=== PATIENT | female | born 2005 | race Caucasian/White ===

== ENCOUNTER 2025-06-24 12:37 | Inpatient (IN) | payer BC, OTHER, SELFPAY ==
[2025-06-24] VITALS (13 sets, daily range): BP systolic 113–173; BP diastolic 64–104; PULSE 107–144; RESP 14–22; TEMP 36.7–38.3; O2SAT 91–99; BMI 32.5; BMI 33.5
--- NOTE | 2025-06-24 12:49 | HMH.EDGENADL ---
Discharge Plan Referrals Follow up/Referrals: Provider,Referral, [Primary Care Provider, Medical] - See instructions Clinical Impressions Clinical Impression: Pyelonephritis, Sepsis Print Language Print Language: Singaporean Discharge ED Provider: Neto Richardson General Adult HPI General Chief complaint: Fever Stated complaint: fever, sever back pain, nausea, sor ethroat Time Seen by Provider: 06/24/25 12:41 History of Present Illness HPI narrative: Nelida Frederick is a 20-year-old female with a past medical history of depression who presents to the emergency department for complaints of 5 days of back pain and sudden onset fever, sore throat. Patient states in the last 5 days, she has pain on both sides of her back with some burning with urination. She states that she also felt like she was febrile today but did not take her temperature. She states that today she started to develop a sore throat but denies any hoarse voice, cough. She states that she feels very anxious and started hyperventilating. She states that she was get ready for telehealth call when her sore throat and fever started and that is when she began to have increased anxiety and hyperventilate. She denies any nausea, vomiting, abdominal pain or diarrhea. Related Data Allergies Allergy/AdvReac Type Severity Reaction Status Date / Time No Known Allergies Allergy Verified 06/24/25 12:55 [facility] Disclaimer: The information contained in this section may have been updated after the patient was seen, as this information can be updated by other users. Social History Smoking Status: Current every day smoker alcohol intake: never current occupational status: employed Travel in the last 8 weeks?: None ROS Obtained: Yes Systems reviewed as appropriate & no additional complaints except as documented Physical Exam General General appearance: alert, in no apparent distress and anxious Head Head exam: atraumatic Eye Eye exam: Present normal appearance ENT ENT exam: Present normal external ear exam Neck Neck exam: Present full ROM Chest Chest inspection: Present symmetric chest wall rise Respiratory Respiratory exam: Present normal lung sounds bilaterally; Absent respiratory distress, wheezes or stridor Cardiovascular Cardiovascular exam: Present normal rhythm and tachycardia Abdominal Exam Abdominal exam: Present soft; Absent distention, tenderness, guarding or rebound Extremities Exam Extremities exam: Present normal inspection Back Exam Back exam: Present normal inspection, CVA tenderness (R) and CVA tenderness (L) Neurological Exam Neurological exam: Present alert and oriented X3 Psychiatric Psychiatric exam: Present normal affect Skin Skin exam: Present warm and dry Medical Decision Making Medical Records Screening: Per USPSTF and CDC recommendations, given the prevalence of disease in our region, it is our hospital?s policy to screen for HIV and viral Hepatitis for all patients aged 18 and over and those with ongoing risk factors. Gabriel Inquiry Pt receiving controlled substance: No Vital Signs: 06/24/25 12:41 06/24/25 12:43 06/24/25 12:47 Temperature 100.9 F H Temperature Source Oral Pulse Rate 144 H 131 H Pulse Rate [Left Radial] 137 H Respiratory Rate 22 Blood Pressure 168/104 H 173/103 H Blood Pressure [Right Arm] 168/104 H Blood Pressure Mean [Right Arm] 125 02 Sat by Pulse Oximetry 98 98 98 Oxygen Delivery Method Room Air 06/24/25 13:00 06/24/25 13:02 06/24/25 13:31 Temperature Temperature Source Pulse Rate 130 H 127 H 122 H Pulse Rate [Left Radial] Respiratory Rate Blood Pressure 114/94 H 114/94 H 134/89 Blood Pressure [Right Arm] Blood Pressure Mean [Right Arm] 02 Sat by Pulse Oximetry 91 L 99 93 L Oxygen Delivery Method Room Air Room Air Room Air 06/24/25 14:30 06/24/25 14:47 Temperature 100.7 F H Temperature Source Oral Pulse Rate 119 H Pulse Rate [Left Radial] Respiratory Rate Blood Pressure 157/93 H Blood Pressure [Right Arm] Blood Pressure Mean [Right Arm] 02 Sat by Pulse Oximetry 98 Oxygen Delivery Method Room Air Lab Data Lab Results 06/24/25 12:57: Urine Color Yellow, Urine Appearance Clear, Urine pH 6.0, Ur Specific [place] 1.015, Urine Protein 1+ A, Urine Glucose (UA) Negative, Urine Ketones Negative, Urine Blood 1+ A, Urine Nitrate Positive A, Urine Bilirubin Negative, Urine Urobilinogen 0.2, Ur Leukocyte Esterase 2+ A, Urine RBC Occasional, Urine WBC Tntc, Ur Squamous Epith Cells Occasional, Urine Bacteria 2+, Urine HCG, Qual Negative, Group A Strep Rapid Negative 06/24/25 12:59: SARS-CoV-2 (PCR) Not detected, Influenza A Untype (PCR) Not detected, Influenza Type B (PCR) Not detected 06/24/25 14:00: WBC 12.9 H, RBC 4.51, Hgb 12.9, Hct 39.4, MCV 87.4, MCH 28.6, MCHC 32.7, RDW 13.5, Plt Count 261, MPV 11.9 H, Neut % (Auto) 82.9 H, Lymph % (Auto) 6.8 L, [place] % (Auto) 9.2, Eos % (Auto) 0.5, Baso % (Auto) 0.2, Neut # (Auto) 10.7 H, Lymph # (Auto) 0.9, [place] # (Auto) 1.2 H, Eos # (Auto) 0.1, Baso # (Auto) 0.0, Sodium 139, Potassium 4.3, Chloride 103, Carbon Dioxide 26, Anion Gap 14.3, BUN 9, Creatinine 0.80, Estimated Creat Clear 151, Estimated GFR 91, Est GFR ( Amer) 110, Glucose 108 H, Lactate 1.0, Calcium 8.9, Total Bilirubin 0.3, AST 26, ALT 16, Alkaline Phosphatase 74, Total Protein 7.3, Albumin 4.1, Globulin 3.2, Albumin/Globulin Ratio 1.3, Lipase 28 06/24/25 14:00 06/24/25 14:00 Orders (Tests/Meds): ED MEDICATIONS Discontinued Medications Generic Name Dose Route Start Last Admin Trade Name Krystina PRN Reason Stop Dose Admin Acetaminophen 1,000 mg 06/24/25 12:46 06/24/25 13:02 Acetaminophen 500mg Tab PO 06/24/25 12:47 1,000 mg ONCE ONE Administration Ceftriaxone Sodium 2 gm/ 100 mls @ 200 mls/hr 06/24/25 13:54 Sodium Chloride IV 06/24/25 14:23 ONCE ONE Lactated Ringer's 1,000 mls @ 999 mls/hr 06/24/25 13:53 06/24/25 14:16 Lactated Ringer's 1000 Ml Bag IV 06/24/25 14:53 999 mls/hr .Q1H1M ONE Administration Ketorolac Tromethamine 15 mg 06/24/25 13:53 06/24/25 14:15 Ketorolac 15mg/Ml Vial IV 06/24/25 13:54 15 mg ONCE ONE Administration ORDERS Category Date Time Status POCUS Point of Care (ER Only) Stat Exams 06/24/25 12:46 Completed CBC w/Auto Diff [Complete Blood Count Auto Diff] Stat Lab 06/24/25 14:00 Completed CMP [Comprehensive Metabolic Panel] Stat Lab 06/24/25 14:00 Completed Lactic Acid Stat Lab 06/24/25 14:00 Completed Lipase Stat Lab 06/24/25 14:00 Completed Rapid PCR Covid and Flu A/B Stat Lab 06/24/25 12:59 Completed Strep Scrn Group A (Rapid) Stat Lab 06/24/25 12:57 Completed UA [Urinalysis and Microscopic] Stat Lab 06/24/25 12:57 Completed Urine , HCG Qual. Stat Lab 06/24/25 12:57 Completed Blood Culture Stat Micro 06/24/25 14:11 Received Strep Screen Confirmation Stat Micro 06/24/25 12:57 Received Urine Culture Stat Micro 06/24/25 12:57 Received Medical Decision Narrative: Nelida Frederick is a 20-year-old female with a past medical history of depression who presents to the emergency department for complaints of 5 days of back pain and sudden onset fever, sore throat. Patient states in the last 5 days, she has pain on both sides of her back with some burning with urination. She states that she also felt like she was febrile today but did not take her temperature. She states that today she started to develop a sore throat but denies any hoarse voice, cough. She states that she feels very anxious and started hyperventilating. She states that she was get ready for telehealth call when her sore throat and fever started and that is when she began to have increased anxiety and hyperventilate. She denies any nausea, vomiting, abdominal pain or diarrhea. On arrival, patient is hypertensive but improved to 114/94 without intervention. Initially tachycardic at 137 but gradually improving without intervention. She is mildly febrile with temperature of 100.9 ?F. She is breathing comfortably on room air with oxygen saturation 98% SpO2. Physical exam, as stated above, revealed a very anxious appearing female in no respiratory distress. Cardiopulmonary exam reveals tachycardia but no murmurs or rubs. Abdomen is soft, nontender nondistended. She does have bilateral CVA tenderness, left worse than right. Oropharyngeal exam shows posterior oropharyngeal erythema but no tonsillar swelling or exudates. Uvula is midline. No muffling of the voice. No cervical lymphadenopathy. Differential diagnosis includes, but is not limited to: UTI/pyelonephritis, ureterolithiasis, viral respiratory illness, viral pharyngitis, strep pharyngitis. Low concern for DVT/PE as patient does not complain of any chest pain or significant shortness of breath. Initial workup in the emergency department included: Rapid COVID flu testing, strep swab, urinalysis, urine test, [id number] renal ultrasound.Will administer 1 g of oral Tylenol. Patient states that she took ibuprofen earlier this morning approximately 4 hours ago [id number] renal ultrasound was performed by me personally. I see no evidence of hydronephrosis or ureterolithiasis. I have low suspicion for renal stone at this time. See procedure note for details. Patient's COVID and flu testing is negative. Negative strep swab. Your studies are negative for , however she does have a significant urinary tract infection/pyelonephritis. She is nitrite positive, 2+ leukocyte esterase with too numerous to count white blood cells. 2+ bacteria. No blood. This is consistent with pyelonephritis. She continues to remain tachycardic and is chilling at this time and in a fair amount of pain. I discussed further workup with patient and will rule out sepsis with blood cultures, CBC, CMP, lactic acid and will administer 2 g of IV Rocephin, 15 mg IV Toradol (last had ibuprofen at 8:00 this morning), and give 1 L lactated ringer. Patient's workup shows leukocytosis with white blood cell count 12.9 with neutrophilia. No anemia. Platelets normal at 261. Electrolytes within normal limits. No AD. Liver enzymes and bilirubin within normal limits. Lipase normal at 28. Lactate normal. Patient meets sepsis criteria. Heart rate continues to be tachycardic here in the ER but she is not hypotensive. I do feel that she would benefit from admission for continued management of her sepsis/pyelonephritis. I spoke to the patient about admission and she is in agreement with the proceed with admission. I then spoke with hospitalist, Dr. Pugh for admission he is in agreement to proceed with admission at this time. Procedures Limited Ultrasound Indication:: Limited renal ultrasound Indication: A focused ultrasound of the kidneys was performed to evaluate for hydronephrosis and nephrolithiasis. The ultrasound was performed with the following indications, as noted in the H&P: Flank pain, fever Identified structures: - Both kidneys Findings: R/L/bilateral kidneys -Normal Impression: -Normal limited renal ultrasound, no evidence of hydronephrosis or calculi Images were saved to permanent archive The study was technically adequate CPT: 19624-88 This study was performed by me, and I personally interpreted all images/videos. Based on my clinical judgement, these images were adequate and did not necessitate further imaging. Critical Care Critical Care Time Critical Care Time: No
[2025-06-24] MEDS: ACETAMINOPHEN 500MG TAB 1000 MG PO (13:02)
[2025-06-24 13:04] LABS: Microscopic, Urine URINE MICROSCOPIC (MICROSCOPIC)
[2025-06-24 13:04] LABS: Coronavirus 19, PCR Not Detected (NotDetected); Influenza A, PCR Not Detected (NotDetected); Influenza B, PCR Not Detected (NotDetected)
[2025-06-24 13:05] LABS: Bilirubin,Urine Negative (Negative); Color,Urine YELLOW (Yellow); Glucose,Urine (UA) Negative (Negative); Ketones,Urine Negative (Negative); Leukocyte Esterase,Urine 2+ (Negative); PH,Urine 6.0 (5.0-8.5); Protein,Urine 1+ (Negative); Specific Gravity, Urine 1.015 (1.005-1.030); Urobilinogen,Urine 0.2 EU/dl (0.2)
[2025-06-24 13:06] LABS: Urine Pregnancy, HCG Qual. Negative (Negative)
[2025-06-24 13:13] LABS: Strep Scrn Group A (Rapid) Negative (Negative)
[2025-06-24 13:50] LABS: Bacteria,Urine 2+ /lpf; RBC,Urine Occasional #/hpf (0-3); Squamous Epithelial Cell,Urine Occasional #/hpf (0-5); WBC,Urine TNTC #/hpf (0-3)
[2025-06-24] MEDS: KETOROLAC 15MG/ML VIAL 15 MG IV (14:15)
[2025-06-24 14:16] LABS: Hematocrit 39.4 % (37.0-47.0); Hemoglobin 12.9 g/dL (12.2-16.2); Immature Granulocytes % 0.4 %; Mean Corpuscular HGB Conc 32.7 g/dL (31.8-35.4); Mean Corpuscular Hemoglobin 28.6 pg (27.0-31.2); Mean Corpuscular Volume 87.4 fl (81-99); Nucleated Red Blood Cells % 0 %; Platelet Count 261 K/mm3 (142-424); Red Blood Count 4.51 M/mm3 (4.20-5.40); Red Cell Distribution Width-SD 43.3 fL; White Blood Count 12.9 K/mm3 (4.8-10.8)
[2025-06-24] MEDS: LACTATED RINGERS 1000ML 1,000 ML 999 ML IV (14:16)
[2025-06-24 14:21] LABS: Albumin Level 4.1 g/dl (3.5-5.0); Chloride 103 mmol/L (98-107); Sodium 139 mmol/L (136-145)
[2025-06-24 14:22] LABS: Potassium 4.3 mmoL/L (3.5-5.1)
[2025-06-24 14:24] LABS: Alanine Aminotransferase 16 U/L (12-78); Albumin/Globulin Ratio 1.3 (1.1-1.8); Alkaline Phosphatase 74 U/L (38-126); Anion Gap 14.3 mEq/L (5-15); Aspartate Amino Transferase 26 U/L (14-36); Bilirubin,Total 0.3 mg/dl (0.2-1.3); Blood Urea Nitrogen 9 mg/dl (7-17); Carbon Dioxide 26 mmol/L (22.0-30.0); Creatinine Clearance Estimated 151 mL/min (50-200); Creatinine,Serum 0.80 mg/dl (0.52-1.04); Estimated Glomerular Filt Rate 91 ml/min (>60); GFR (African American) 110 ML/MIN (>60); Globulin 3.2 g/dL (1.3-3.2); Total Protein,Serum 7.3 g/dl (6.3-8.2)
[2025-06-24 14:25] LABS: Calcium 8.9 mg/dl (8.4-10.2); Glucose 108 mg/dl (74-100); Lipase 28 U/L (23-300)
--- NOTE | 2025-06-24 14:51 | PC.NURSE ---
reached out to the hospitalist about possible admission. Waiting to hear back.
--- NOTE | 2025-06-24 14:58 | PC.NURSE ---
The hospitalist accepted the pt. HS notified of the need for a bed to admit for pyelonephritis and sepsis.
--- NOTE | 2025-06-24 15:12 | PC.NURSE ---
report called to bev on second floor
--- NOTE | 2025-06-24 15:40 | PC.NURSE ---
arrived by w/c from ED
--- NOTE | 2025-06-24 15:44 | EXP.HP ---
History of Present Illness *Admission Date: 06/24/25 *Reason for visit:: Left flank pain *History of present illness: Kavita Jean Baptiste is a 20-year-old female with a medical history significant for UTIs presents with progressive left-sided flank pain, and 1 day onset of fevers and nausea. She states she started having back pain starting Friday, especially her left side. Initially she thought she pulled a muscle and used a massage chair which did not make it better. Left flank pain got progressively worse, and over the past day she started having fevers and nausea and left flank pain. Workup in the ED significant for WBC 12.9, fevers up to 100.9, with tachycardia, UA grossly abnormal. Patient was given 1 L LR, ceftriaxone, Tylenol, Toradol. Given these findings, ED provider discussed case with manage said to admit patient for acute left-sided pyelonephritis. [facility] Disclaimer: The information contained in this section may have been updated after the patient was seen, as this information can be updated by other users. Family History (Updated 06/24/25 @ 16:40 by Pam Ross RN) Other Family history of hypertension Family history of hyperthyroidism Social History (Updated 06/24/25 @ 15:02 by Neto Richardson MD) Smoking Status: Current every day smoker alcohol intake: never current occupational status: employed Travel in the last 8 weeks?: None Have you lived/traveled outside [place] in past 30 days?: No Contact w/someone who lives/traveled outside US past 30 days?: No Exposure to someone with infectious disease in past 14 days?: No Do you have a fever (greater than 100.4 F or 38 C)?: No Have you tested positive for COVID-19?: No Exposed to someone with COVID-19 in past 14 days?: No Do you have a sore throat?: No Do you have a cough?: No Do you have any weakness?: No Do you have any diarrhea?: No Are you experiencing any unusual bleeding?: No Do you have any muscle aches/pain?: No Do you have any abdominal pain?: No Are you experiencing loss of taste or smell?: No Meds Home Medications and Allergies Home Medications ?Medication ?Instructions ?Recorded ?Confirmed ?Type bupropion HCl 75 mg tablet 75 mg PO BID 06/24/25 06/24/25 History fluoxetine 40 mg capsule 40 mg PO DAILY 06/24/25 06/24/25 History New Prescriptions to Start Prescriptions: Allergies Allergy/AdvReac Type Severity Reaction Status Date / Time No Known Allergies Allergy Verified 06/24/25 12:55 Exam Data for Last 24 hours Vital signs and Labs for Last 24 Hours: Temp Pulse Resp BP Pulse Ox O2 Del Method 100.7 F H 119 H 22 158/92 H 97 Room Air 06/24/25 14:47 06/24/25 15:00 06/24/25 12:47 06/24/25 15:00 06/24/25 15:00 06/24/25 15:00 Laboratory Results - last 24 hr 06/24/25 12:57: Urine Color Yellow, Urine Appearance Clear, Urine pH 6.0, Ur Specific [place] 1.015, Urine Protein 1+ A, Urine Glucose (UA) Negative, Urine Ketones Negative, Urine Blood 1+ A, Urine Nitrate Positive A, Urine Bilirubin Negative, Urine Urobilinogen 0.2, Ur Leukocyte Esterase 2+ A, Urine RBC Occasional, Urine WBC Tntc, Ur Squamous Epith Cells Occasional, Urine Bacteria 2+, Urine HCG, Qual Negative, Group A Strep Rapid Negative 06/24/25 12:59: SARS-CoV-2 (PCR) Not detected, Influenza A Untype (PCR) Not detected, Influenza Type B (PCR) Not detected 06/24/25 14:00: WBC 12.9 H, RBC 4.51, Hgb 12.9, Hct 39.4, MCV 87.4, MCH 28.6, MCHC 32.7, RDW 13.5, Plt Count 261, MPV 11.9 H, Neut % (Auto) 82.9 H, Lymph % (Auto) 6.8 L, [place] % (Auto) 9.2, Eos % (Auto) 0.5, Baso % (Auto) 0.2, Neut # (Auto) 10.7 H, Lymph # (Auto) 0.9, [place] # (Auto) 1.2 H, Eos # (Auto) 0.1, Baso # (Auto) 0.0, Sodium 139, Potassium 4.3, Chloride 103, Carbon Dioxide 26, Anion Gap 14.3, BUN 9, Creatinine 0.80, Estimated Creat Clear 151, Estimated GFR 91, Est GFR ( Amer) 110, Glucose 108 H, Lactate 1.0, Calcium 8.9, Total Bilirubin 0.3, AST 26, ALT 16, Alkaline Phosphatase 74, Total Protein 7.3, Albumin 4.1, Globulin 3.2, Albumin/Globulin Ratio 1.3, Lipase 28 I & O for Last 24 hours: Intake & Output 06/21/25 06/22/25 06/23/25 06/24/25 23:59 23:59 23:59 23:59 Intake Total 1000 / 1000 Balance 1000 / 1000 Weight 86.183 kg Constitutional Constitutional: no acute distress *Routine HEENT Exam Head: Present normocephalic Eye: Present EOMI and PERRL ENT: Present mucous membranes moist *Routine Neck Exam Neck: Present supple; Absent lymphadenopathy *Routine Respiratory Exam Respiratory: Present CTA bilaterally *Routine Cardiovascular Exam Cardiovascular: Present RRR *Routine Abdominal Exam Abdominal: Present soft and normoactive bowel sounds; Absent tenderness *Routine Rectal Exam Rectal:: deferred *Routine Genitalia Exam Genitalia:: deferred *Routine Extremities Exam Extremities: Absent cyanosis, clubbing or edema Comments: Left CVA tenderness. *Routine Skin Exam Skin: Present warm; Absent rash *Routine Neurological Exam Neurological: Present alert and oriented X3 Assessment and Plan *Assessment and plan (1) Sepsis: Status: Acute Category: Medical Code(s): A41.9 - Sepsis, unspecified organism (2) Pyelonephritis: Status: Acute Category: Medical Code(s): N12 - Tubulo-interstitial nephritis, not specified as acute or chronic Plan Kavita Jean Baptiste is a 20-year-old female with a medical history significant for UTIs presents with progressive left-sided flank pain, and 1 day onset of fevers and nausea. She states she started having back pain starting Friday, especially her left side. Initially she thought she pulled a muscle and used a massage chair which did not make it better. Left flank pain got progressively worse, and over the past day she started having fevers and nausea and left flank pain. Workup in the ED significant for WBC 12.9, fevers up to 100.9, with tachycardia, UA grossly abnormal. Patient was given 1 L LR, ceftriaxone, Tylenol, Toradol. Given these findings, ED provider discussed case with manage said to admit patient for acute left-sided pyelonephritis. #Sepsis #Acute left-sided pyelonephritis ? Presented with progressive left-sided flank pain, fevers, nausea. UA grossly abnormal. ? Met sepsis criteria with tachycardia, fevers, leukocytosis. ? Continue IV ceftriaxone 1 g daily. ? Follow-up urine, blood cultures. ? Tylenol, Toradol, morphine for pain control since kidney function stable. #Anxiety/depression ? Continue home medications once reconciled. Full code DVT prophylaxis: Patient is ambulatory
[2025-06-24] MEDS: LACTATED RINGERS 1000ML 1,000 ML 100 ML IV (17:01)
[2025-06-24] MEDS: KETOROLAC 30MG/ML VIAL 30 MG IV (17:54)
[2025-06-24] MEDS: ACETAMINOPHEN 325MG TAB 650 MG PO (20:13)
[2025-06-24] MEDS: MORPHINE 4MG/ML SYRINGE 4 MG IV (20:56)
--- NOTE | 2025-06-24 21:50 | PC.NURSE ---
Pt vomited undigested foods. she woke from a sleep and vomited. Zofram was offered. Stated that she will wait a bit. PETROS HENDRICKSON
[2025-06-24] MEDS: ONDANSETRON 4MG/2ML VIAL 4 MG IV (23:12)
--- NOTE | 2025-06-24 23:16 | PC.NURSE ---
Pt was begining to dry heave. She requested Zofram. Gave her the med per the OCT. PETROS HENDRIKCSON RN
[2025-06-25] VITALS (7 sets, daily range): BP systolic 104–129; BP diastolic 45–87; PULSE 61–144; RESP 14–18; TEMP 36.8–38.9; O2SAT 93–97; BMI 33.5
[2025-06-25] MEDS: IBUPROFEN 400 MG TABLET PO (00:16)
[2025-06-25] MEDS: LACTATED RINGERS 1000ML 1,000 ML 100 ML IV ×3 (02:49→22:34)
--- NOTE | 2025-06-25 03:49 | PC.NURSE ---
Pt is on RA, Alert and oriented X4, Patients Boyfriend is at the beside. Pt has vomited tonight most of what she ate yesterday. Pt has spiked a temp on and off all night last temp was 101.2 spoke with Tran [employer]is [employer] OPERATOR he placed orders of phenergan and mortin 400 mg. Pt is independent can walk to the Bathroom to void. call light is with in reach the bed is in the lowest position. PETROS HENDRICKSON RN
[2025-06-25 08:10] LABS: Hematocrit 40.4 % (37.0-47.0); Hemoglobin 12.7 g/dL (12.2-16.2); Immature Granulocytes % 1.2 %; Mean Corpuscular HGB Conc 31.4 g/dL (31.8-35.4); Mean Corpuscular Hemoglobin 28.1 pg (27.0-31.2); Mean Corpuscular Volume 89.4 fl (81-99); Nucleated Red Blood Cells % 0 %; Platelet Count 209 K/mm3 (142-424); Red Blood Count 4.52 M/mm3 (4.20-5.40); Red Cell Distribution Width-SD 45.1 fL; White Blood Count 24.1 K/mm3 (4.8-10.8)
[2025-06-25] MEDS: ONDANSETRON 4MG/2ML VIAL 4 MG IV (08:28)
[2025-06-25] MEDS: KETOROLAC 30MG/ML VIAL 30 MG IV (08:29)
--- NOTE | 2025-06-25 08:47 | HMH.PHAAMS2 ---
- Antimicrobial Stewardship Review culture & sensitivity review Stewardship interventions: culture & sensitivity review Comments: BLOOD CX PENDING, URINE CX GRAM NEGATIVE RODS WITH FINAL ID/SENSITIVITY PENDING. PATIENT ON EMPIRIC THERAPY FOR PYELONEPHRITIS/UTI (ROCEPHIN).
[2025-06-25 08:52] LABS: Alanine Aminotransferase 39 U/L (12-78); Albumin Level 4.2 g/dl (3.5-5.0); Albumin/Globulin Ratio 1.4 (1.1-1.8); Alkaline Phosphatase 111 U/L (38-126); Anion Gap 14.9 mEq/L (5-15); Aspartate Amino Transferase 72 U/L (14-36); Bilirubin,Total 0.8 mg/dl (0.2-1.3); Blood Urea Nitrogen 6 mg/dl (7-17); Calcium 8.7 mg/dl (8.4-10.2); Carbon Dioxide 21 mmol/L (22.0-30.0); Chloride 102 mmol/L (98-107); Creatinine Clearance Estimated 179 mL/min (50-200); Creatinine,Serum 0.70 mg/dl (0.52-1.04); Estimated Glomerular Filt Rate 106 ml/min (>60); GFR (African American) 128 ML/MIN (>60); Globulin 3.0 g/dL (1.3-3.2); Glucose 114 mg/dl (74-100); Potassium 3.9 mmoL/L (3.5-5.1); Sodium 134 mmol/L (136-145); Total Protein,Serum 7.2 g/dl (6.3-8.2)
[2025-06-25] MEDS: MORPHINE 4MG/ML SYRINGE 4 MG IV ×2 (09:14→20:51)
[2025-06-25] MEDS: SODIUM CHLORIDE 0.9% 25ML BAG 25 ML IV (09:17)
[2025-06-25] MEDS: PROMETHAZINE HCL 25MG/ML 1ML VIAL 12.5 MG IV (09:18)
--- NOTE | 2025-06-25 09:20 | HMH.PHAINT1 ---
Pharmacy Intervention Comments: MEDICATION RECONCILIATION COMPLETE USING EXTERNAL PHARMACY FILL HISTORY.
[2025-06-25 09:31] LABS: RBC Morphology Normal; Total Cells Counted 100
--- NOTE | 2025-06-25 10:08 | CT_ITS ---
PROCEDURE INFORMATION: Exam: CT Abdomen And Pelvis With Contrast Exam date and time: 06/25/2025 10:53 AM Age: 20 years old Clinical indication: Other: Suspect pyelonephritis, worsening fevers TECHNIQUE: Imaging protocol: Computed tomography of the abdomen and pelvis with contrast. Radiation optimization: All CT scans at this facility use at least one of these dose optimization techniques: automated exposure control; mA and/or kV adjustment per patient size (includes targeted exams where dose is matched to clinical indication); or iterative reconstruction. Contrast material: ISOVUE; Contrast volume: 75 ml; Contrast route: IV; COMPARISON: No relevant prior studies available. FINDINGS: Liver: Normal. No mass. Gallbladder and biliary ducts: Normal. No calcified stones. No ductal dilation. Pancreas: Normal. No ductal dilation. Spleen: Normal. No splenomegaly. Adrenal glands: Normal. No mass. Kidneys and ureters: Mild left perinephric stranding. Heterogeneous enhancement within the left superior and mid poles. Mild wall enhancement of the proximal left ureter. Compatible with pyelonephritis/ureteritis. Normal enhancement of the right kidney. Stomach and bowel: Unremarkable. No obstruction. No mucosal thickening. Appendix: No evidence of appendicitis. Intraperitoneal space: Unremarkable. No free air. No significant fluid collection. Vasculature: Unremarkable. No abdominal aortic aneurysm. Lymph nodes: Unremarkable. No enlarged lymph nodes. Urinary bladder: Unremarkable as visualized. Reproductive: IUD in the uterus. Bones/joints: Unremarkable. No acute fracture. Soft tissues: Unremarkable. IMPRESSION: Mild left perinephric stranding. Heterogeneous enhancement within the left superior and mid poles. Mild wall enhancement of the proximal left ureter. Compatible with pyelonephritis/ureteritis.
[2025-06-25] MEDS: IOPAMIDOL-370 (76%);100ML BOTTLE 75 ML IV (10:59)
[2025-06-25] MEDS: SODIUM CHLORIDE 0.9% 10ML SYR (RAD ONLY) 10 ML IV (10:59)
[2025-06-25] MEDS: CEFEPIME HCL 2 GM in 0.9 % SODIUM CHLORIDE 100 ML IV ×2 (11:42→17:50)
--- NOTE | 2025-06-25 11:51 | EXP.PN ---
Subjective *Date: 06/25/25 *Time: 11:51 Interval history: Patient continues to feel unwell, febrile, tachycardic. Follow-up GC/trichomonas workup. Switch antibiotics to IV cefepime, follow-up urine cultures. Exam Data for Last 24 hours Vital signs and Labs for Last 24 Hours: Temp Pulse Resp BP Pulse Ox O2 Del Method 99.0 F 144 H 18 120/87 96 Room Air 06/25/25 08:00 06/25/25 08:00 06/25/25 08:00 06/25/25 08:00 06/25/25 08:00 06/25/25 09:00 Laboratory Results - last 24 hr 06/24/25 12:57: Urine Color Yellow, Urine Appearance Clear, Urine pH 6.0, Ur Specific [place] 1.015, Urine Protein 1+ A, Urine Glucose (UA) Negative, Urine Ketones Negative, Urine Blood 1+ A, Urine Nitrate Positive A, Urine Bilirubin Negative, Urine Urobilinogen 0.2, Ur Leukocyte Esterase 2+ A, Urine RBC Occasional, Urine WBC Tntc, Ur Squamous Epith Cells Occasional, Urine Bacteria 2+, Urine HCG, Qual Negative, Group A Strep Rapid Negative 06/24/25 12:59: SARS-CoV-2 (PCR) Not detected, Influenza A Untype (PCR) Not detected, Influenza Type B (PCR) Not detected 06/24/25 14:00: WBC 12.9 H, RBC 4.51, Hgb 12.9, Hct 39.4, MCV 87.4, MCH 28.6, MCHC 32.7, RDW 13.5, Plt Count 261, MPV 11.9 H, Neut % (Auto) 82.9 H, Lymph % (Auto) 6.8 L, [place] % (Auto) 9.2, Eos % (Auto) 0.5, Baso % (Auto) 0.2, Neut # (Auto) 10.7 H, Lymph # (Auto) 0.9, [place] # (Auto) 1.2 H, Eos # (Auto) 0.1, Baso # (Auto) 0.0, Sodium 139, Potassium 4.3, Chloride 103, Carbon Dioxide 26, Anion Gap 14.3, BUN 9, Creatinine 0.80, Estimated Creat Clear 151, Estimated GFR 91, Est GFR ( Amer) 110, Glucose 108 H, Lactate 1.0, Calcium 8.9, Total Bilirubin 0.3, AST 26, ALT 16, Alkaline Phosphatase 74, Total Protein 7.3, Albumin 4.1, Globulin 3.2, Albumin/Globulin Ratio 1.3, Lipase 28 06/25/25 08:00: WBC 24.1 H* D, RBC 4.52, Hgb 12.7, Hct 40.4, MCV 89.4, MCH 28.1, MCHC 31.4 L, RDW 13.7, Plt Count 209, MPV 12.0 H, Neut % (Auto) 86.8 H, Lymph % (Auto) 4.3 L, [place] % (Auto) 7.3, Eos % (Auto) 0.2, Baso % (Auto) 0.2, Neut # (Auto) 20.9 H, Lymph # (Auto) 1.0, [place] # (Auto) 1.8 H, Eos # (Auto) 0.1, Baso # (Auto) 0.0, Total Counted 100, Neutrophils % (Manual) 83 H, Lymphocytes % (Manual) 9 L, Monocytes % (Manual) 8, Platelet Estimate Normal, RBC Morphology Normal, Sodium 134 L, Potassium 3.9, Chloride 102, Carbon Dioxide 21 L, Anion Gap 14.9, BUN 6 L D, Creatinine 0.70, Estimated Creat Clear 179, Estimated GFR 106, Est GFR ( Amer) 128, Glucose 114 H, Calcium 8.7, Total Bilirubin 0.8, AST 72 H D, ALT 39 D, Alkaline Phosphatase 111, Total Protein 7.2, Albumin 4.2, Globulin 3.0, Albumin/Globulin Ratio 1.4 I & O for Last 24 hours: Intake & Output 06/22/25 06/23/25 06/24/25 06/25/25 23:59 23:59 23:59 23:59 Intake Total 1460 / 1700 2110 / 2110 Output Total 0 / 0 1150 / 1150 Balance 1460 / 1700 960 / 960 Weight 89.2 kg 89.103 kg Microbiology Reports for the Last 24 Hours: Microbiology 06/24/25 12:57 Urine,Clean Catch Urine Culture - Preliminary Gram Negative Rods Constitutional Constitutional: mild distress *Routine HEENT Exam Head: Present normocephalic Eye: Present EOMI and PERRL ENT: Present mucous membranes moist *Routine Neck Exam Neck: Present supple; Absent lymphadenopathy *Routine Respiratory Exam Respiratory: Present CTA bilaterally *Routine Cardiovascular Exam Cardiovascular: Present RRR *Routine Abdominal Exam Abdominal: Present soft, normoactive bowel sounds and tenderness Comments: Left CVA tenderness. *Routine Extremities Exam Extremities: Absent cyanosis, clubbing or edema *Routine Skin Exam Skin: Present warm; Absent rash *Routine Neurological Exam Neurological: Present alert and oriented X3 Assessment and Plan *Assessment and plan (1) Sepsis: Status: Acute Category: Medical Code(s): A41.9 - Sepsis, unspecified organism (2) Pyelonephritis: Status: Acute Category: Medical Code(s): N12 - Tubulo-interstitial nephritis, not specified as acute or chronic Plan Kavita Jean Baptiste is a 20-year-old female with a medical history significant for UTIs presents with progressive left-sided flank pain, and 1 day onset of fevers and nausea. She states she started having back pain starting Friday, especially her left side. Initially she thought she pulled a muscle and used a massage chair which did not make it better. Left flank pain got progressively worse, and over the past day she started having fevers and nausea and left flank pain. Workup in the ED significant for WBC 12.9, fevers up to 100.9, with tachycardia, UA grossly abnormal. Patient was given 1 L LR, ceftriaxone, Tylenol, Toradol. Given these findings, ED provider discussed case with manage said to admit patient for acute left-sided pyelonephritis. #Sepsis #Acute left-sided pyelonephritis ? Presented with progressive left-sided flank pain, fevers, nausea. UA grossly abnormal. ? Met sepsis criteria with tachycardia, fevers, leukocytosis. ? Today, patient states she continues to feel unwell, weak, left flank pain that is slightly worse today. Fevers up to 101.2 overnight, WBC bumped to 24.1. Still tachycardic. ? CT abdomen/pelvis on 06/25/2025 consistent with left-sided pyelonephritis and ureteritis without abscess. ? Switched to IV cefepime 2 g every 8 hours, discontinued ceftriaxone. ? Continue LR at 100 mg/h. ? Ordered G/C/trichomonas studies. ? Follow-up urine, blood cultures. Urine culture growing gram-negative rods. ? Tylenol, Toradol, morphine for pain control since kidney function stable. Creatinine 0.70, GFR 106. Stable. ? Follow-up morning CBC, CMP, CRP, procalcitonin. #Anxiety/depression ?Continue home bupropion 75 mg twice daily, fluoxetine 40 mg daily. Full code DVT prophylaxis: Patient is ambulatory
[2025-06-25] MEDS: FLUOXETINE 20MG CAPSULE 40 MG PO (12:18)
[2025-06-25] MEDS: ACETAMINOPHEN 325MG TAB 650 MG PO ×2 (12:48→20:47)
[2025-06-25 13:03] LABS: Adenovirus,PCR Not Detected (NotDetected); Chlamydophila Pneumoniae, PCR Not Detected (NotDetected); Coronavirus 19, PCR Not Detected (NotDetected); Coronovirus HKU1,PCR Not Detected (NotDetected); Influenza A, PCR Not Detected (NotDetected); Influenza AH1, 2009 Not Detected (NotDetected); Influenza AH1, PCR Not Detected (NotDetected); Influenza AH3,PCR Not Detected (NotDetected); Influenza B, PCR Not Detected (NotDetected); Mycoplasma Pneumoniae, PCR Not Detected (NotDetected); Parainfluenza 1, PCR Not Detected (NotDetected); Parainfluenza 2, PCR Not Detected (NotDetected); Parainfluenza 3, PCR Not Detected (NotDetected); Parainfluenza 4, PCR Not Detected (NotDetected)
--- OUTSIDE RECORDS SUMMARY | 2025-06-25 13:16 | XMS_ITS | Clinical Summary ---
[facility] Organization [facility] Address [address] [place] [address] Care Team Providers Care Community Health Program Representative Name Role Phone Percy Mendez DO Primary Care Provider [phone] Allergies No known active allergies Medications levonorgestrel (Kyleena) 19.5 MG intrauterine device IUD To be inserted one time by prescriber. Route intrauterine. Active phenazopyridine (PYRIDIUM) 200 MG tablet Take 1 tablet by mouth 3 (Three) Times a Day As Needed for Bladder Spasms. Active azithromycin (ZITHROMAX) 250 MG tabletIndication s:Chronic vaginitis Take 2 tablets the first day, then 1 tablet daily for 4 days. Start when finished with Moxifloxacin 6 tablet 5 Active Active Problems Problem Noted Date Diagnosed Date Urine frequency 05/03/2024 Sore throat 04/06/2024 IUD (intrauterine device) in place- Kyleena (8/ 023) 03/05/2024 Current every day vaping 03/05/2024 Immunizations Immunization Administration Dates Next Due DTaP 10/21/2005, 5,2004,05/11/20 04 DTaP / IPV 03/27/2009 DTaP, Unspecified 03/27/2009 Hep A, 2 Dose 04/15/2018,10/07/2017 Hep B, Adolescent or Pediatric 2004,2003,2004 Hib (PRP-OMP) 03/11/2005 Hpv9 04/02/2019,05/16/2015 MMR 03/27/2009,03/23/2006 Meningococcal MCV4P (Menactra) 05/15/2021,2014 PEDS-Pneumococcal Conjugate (PCV7) 03/11/2005 Polio, Unspecified 03/27/2009 Rotavirus, Unspecified 04/02/2019,05/16/2015 Tdap 05/16/2015 Varicella 05/16/2015,03/27/2009,03/11/2005 Family History Medical History Relation Name Comments Breast cancer Maternal Aunt Diabetes Maternal Grandmother type 1 Hypothyroidism Maternal Grandmother Hypothyroidism Mother Ovarian cysts Mother Colon cancer Neg Hx Ovarian cancer Neg Hx Uterine cancer Neg Hx Relation Name Status Comments Maternal Aunt great- aunt Maternal Grandmother Mother Social History Tobacco Use Types Packs/Day Years Used Date Smoking Tobacco: Never Passive Smoke Exposure: Never Smokeless Tobacco: Never Tobacco Cessation:Counseling Given: Not Answered Alcohol Use Standard Drinks/Week Comments Not Currently 0 (1 standard drink = 0.6 oz pur e alcohol) Abuse Screen Answer Date Recorded Feels Unsafe at Home or Work/School no 07/26/2024 Feels Threatened by Someone no 07/05 Does Anyone Try to Keep You From Having Contact with Others or Doing Things Outside Your Home? no 07/26/2024 Physical Signs of Abuse Present no 07/26/2024 PHQ-2 Answer Date Recorded Patient Health Questionnaire-2 Score 1 09/24/2024 Comments No Sex and Gender Information Value Date Recorded Sex Assigned at Female 08/24/2024 9:07 AM EST Legal Sex Female 12:56 PM EDT Gender Identity Not on file Sexual Orientation Not on file Last Filed Vital Signs Vital Sign Reading Time Taken Comments Blood Pressure 92/76 09/24/2024 1:24 PM EST Pulse 85 09/24/2024 1:24 PM EST Temperature 36.9 C (98.4 F) 07/26/2024 12:41 AM EST Respiratory Rate 18 09/24/2024 1:24 PM EST Oxygen Saturation 99% 09/24/2024 1:24 PM EST Inhaled Oxygen Concentration - - Weight 88 kg (194 lb) 09/24/2024 1:24 PM EST Height 162.6 cm (5' 4.02 ) 09/24/2024 1:24 PM ES T Body Mass Index 33.28 09/24/2024 1:24 PM EST Plan of Treatment Health Maintenance Due Date Last Done Comments Annual Gynecologic Pelvic an d Breast Exam 2004 MENINGOCOCCAL B VACCINE (1 o f 2 - Standard) 2020 ANNUAL PHYSICAL 03/05/2024 HEPATITIS C SCREENING 03/05/2024 INFLUENZA VACCINE 03/04/2025 PAP SMEAR 2025 TDAP/TD VACCINES (2 - Td or Tdap) 05/16/2025 05/16/2015 CHLAMYDIA SCREENING 08/11/2025 08/11/2024, 06/25/2024, 03/05/2024 Pneumococcal Vaccine 0-49 Aged Out 03/11/2005 No longer eligible based on patient's age to complete this topic HPV VACCINES Completed 04/02/2019, 05/16/2015 MENINGOCOCCAL VACCINE Completed 05/15/2021 , 05/16/2015 Procedures Procedure Name Priority Date/Time Associated Diagnosis Comments NUSWAB VG+ Routine 08/11/2024 3:00 PM EST Chronic vaginitis from Last 3 Months or Most Recently Relevant to Health Maintenance Results * (ABNORMAL) NuSwab VG+ - Swab, Vagina (08/11/2024 3:00 PM EST) Atopobium Vaginae High - 2(A) Score [facility] B BVAB 2 Low - 0 Score [facility] Megasphaera 1 Low - 0 Score [facility] Comment: Calculate total score by adding the 3 individual bacterial vaginosis (BV) marker scores together. Total score is interpreted as follows: Total score 0-1: Indicates the absence of BV. Total score 2: Indeterminate for BV. Additional clinical data should be evaluated to establish a diagnosis. Total score 3-6: Indicates the presence of BV. Estrella Albicans, DEANDRA Negative Negative [facility] Estrella Glabrata, DEANDRA Negative Negative [facility] Trichomonas vaginosis Negative Negative [facility] Chlamydia trachomatis, DEANDRA Negative Negative [facility] Neisseria gonorrhoeae, DEANDRA Negative Negative [facility] Swab Vaginal structure / Unknown 08/11/2024 3:00 PM EST 08/11/2024 Comment:[facility]- [id number] Narrative [facility] ([facility]) - 08/14/2024 2:08 PM EST Test(s) 302554- Atopobium vaginae; 569730- BVAB 2; 590418- Megasphaera 1 was developed and its performance characteristics determined by [facility]. It has not been cleared or approved by the Food and Drug Administration. Test(s) 923421-Nsssgrs albicans, DEANDRA; 877721-Hafqqjj glabrata, DEANDRA was developed and its performance characteristics determined by [facility]. It has not been cleared or approved by the Food and Drug Administration. Performed at: 01 - [facility] [id number] Hr Recruiter: Pratik Khalil MD, Phone: [phone] Faiza Murphy APRN MICROBIOLOGY - GENERAL ORD ERABLES Final Result [facility] (AMBULATORY) [address] [place] [address], [facility] [address] [place] [address], from Last 3 Months or Most Recently Relevant to Health Maintenance Insurance [facility] Care Teams Community Health Program Representative Relationship Specialty Start Date End Date ePrcy Mendez DO [address] [place] [id number] PCP - General Family Medicine 09/24/24
--- OUTSIDE RECORDS SUMMARY | 2025-06-25 13:16 | XMS_ITS | Clinical Summary ---
Author Organization Healthcare Address [address] [place] [address] Care Team Providers Care Ink Maker Name Role Phone Pcp, No Primary Care Provider Unavailabl e Social History Tobacco Use Types Packs/Day Years Used Date Smoking Tobacco: Never Assessed Comments Unknown Sex and Gender Information Value Date Recorded Sex Assigned at Not on file Legal Sex Female 7:50 PM EDT Gender Identity Not on file Sexual Orientation Not on file Plan of Treatment Upcoming Encounters Date Type Department Care Team (Late st Contact Info) Description 07/13/2025 1:20 PM EST Office Visit Obstetrics & Gynecology [address] [place] [address] Mare Wolf, WEAPONS SPECIALIST, CNM [address] [facility] [address] [place] [address] Health Maintenance Due Date Last Done Comments Dental Oral Exam 2004 Dental Prophylaxis 2004 Dental X-Ray: Bitewings 2004 Dental X-Ray: Full Mouth 2004 [facility]-Depression Screening 2004 [facility]-HIV Screening 2004 [facility]-Hepatitis C Screening 2004 [facility]-Infant/Child/Adol SDOH Screenings 2004 [facility]-Hepatitis B Vaccines (2 of 3 - 3-dose series) 2004 2004 [facility]-IPV Vaccines (2 of 3 - 4 -dose series) 2004 2004 [facility]-Varicella Vaccines (1 of 2 - 13+ 2-dose series) 2017 HPV Vaccines (1 - 3-dose series) 2019 [facility]- SDOH Screenings 2022 [facility]-Adult SDOH Screenings 2022 [facility]-DTaP,Tdap,and Td Vaccine s (2 - Tdap) 2023 2004 [facility]-Pap Smear 2025 [facility]-RDCIP-30 Vaccine (1 - 20 25-26 season) 2025 [facility]-Influenza Vaccine (#1) 2025 [facility]-Zoster Vaccines (1 of 2) 2054 [facility]-Pneumococcal Vaccine: Pediatrics (0 to 5 Years) and At-Risk Patients (6 to 49 Years) Aged Out 2004 No long er eligible based on patient's age to complete this topic [facility]-HIB Vaccines Aged Out No longer e ligible based on patient's age to complete this topic [facility]-Hepatitis A Vaccines Aged Out No longer eligible based on patient's age to complete this topic [facility]-Rotavirus Vaccines Aged Out No lo nger eligible based on patient's age to complete this topic Insurance [facility] MEDICAID [facility] Medicaid Dental Care Teams Ink Maker Relationship Specialty Start Date [place] [address] PCP - General Family Medicine 06/15/25
[2025-06-25] MEDS: KETOROLAC 15MG/ML VIAL 15 MG IV ×2 (13:42→22:52)
[2025-06-25 14:05] LABS: C-Reactive Protein 232.5 mg/L (0-4)
[2025-06-25 14:17] LABS: Procalcitonin 1.05 ng/mL (0.0-2.0)
--- NOTE | 2025-06-25 17:16 | PC.NURSE ---
pt resting supine in bed at this time. treated for pain and nausea multiple times this shift. pt spiked fever of 103.2 during 1200 vitals. tech notified this rn and tylenol given per oct. fever reduced to 99.4 at 1422. pt had one episode of vomiting this shift. urine and full resp sent to lab. no needs at this time. call light within reach.
[2025-06-26] VITALS: BP 99/53; PULSE 93; RESP 16; TEMP 37.2; O2SAT 94
[2025-06-26] MEDS: CEFEPIME HCL 2 GM in 0.9 % SODIUM CHLORIDE 100 ML IV ×2 (01:43→08:51)
[2025-06-26 04:00] VITALS: BP 99/59; PULSE 86; RESP 16; TEMP 36.8; O2SAT 93; BMI 36.6
[2025-06-26] MEDS: KETOROLAC 15MG/ML VIAL 15 MG IV ×3 (05:45→18:26)
[2025-06-26] MEDS: LACTATED RINGERS 1000ML 1,000 ML 100 ML IV ×3 (05:45→18:27)
[2025-06-26] MEDS: MORPHINE 4MG/ML SYRINGE 4 MG IV ×2 (05:56→20:08)
[2025-06-26 06:57] LABS: Hematocrit 33.1 % (37.0-47.0); Immature Granulocytes % 0.7 %; Mean Corpuscular HGB Conc 31.1 g/dL (31.8-35.4); Mean Corpuscular Hemoglobin 27.6 pg (27.0-31.2); Mean Corpuscular Volume 88.7 fl (81-99); Nucleated Red Blood Cells % 0 %; Platelet Count 183 K/mm3 (142-424); Red Blood Count 3.73 M/mm3 (4.20-5.40); Red Cell Distribution Width-SD 45.4 fL; White Blood Count 22.0 K/mm3 (4.8-10.8)
[2025-06-26 07:12] LABS: Alanine Aminotransferase 37 U/L (12-78); Albumin Level 3.1 g/dl (3.5-5.0); Albumin/Globulin Ratio 1.2 (1.1-1.8); Alkaline Phosphatase 102 U/L (38-126); Anion Gap 8.6 mEq/L (5-15); Aspartate Amino Transferase 52 U/L (14-36); Bilirubin,Total 0.6 mg/dl (0.2-1.3); Blood Urea Nitrogen 7 mg/dl (7-17); Calcium 8.1 mg/dl (8.4-10.2); Carbon Dioxide 24 mmol/L (22.0-30.0); Chloride 104 mmol/L (98-107); Creatinine Clearance Estimated 195 mL/min (50-200); Creatinine,Serum 0.70 mg/dl (0.52-1.04); Estimated Glomerular Filt Rate 106 ml/min (>60); GFR (African American) 128 ML/MIN (>60); Globulin 2.6 g/dL (1.3-3.2); Glucose 95 mg/dl (74-100); Potassium 3.6 mmoL/L (3.5-5.1); Sodium 133 mmol/L (136-145); Total Protein,Serum 5.7 g/dl (6.3-8.2)
--- NOTE | 2025-06-26 07:26 | PC.NURSE ---
at 2248 06/25/2025 Pt spiked a temp of 102.1 Auxiliary. She has rested on and off thru the night. When spike the fever and chilling she has back pain in the Left flank area. described the pain as a 9 or a 10 and she is was crying in pain. Pt is on Room air. walked to the bathroom to void. LR Going at 150 ml. PT did not have any vomiting overnight. call light is within reach and the beds wheels are lock for Pt safety. PETROS HENDRICKSON RN
[2025-06-26 08:00] VITALS: BP 116/55; PULSE 102; RESP 14; TEMP 37.2; O2SAT 98
[2025-06-26] MEDS: FLUOXETINE 20MG CAPSULE 40 MG PO (08:51)
--- NOTE | 2025-06-26 10:57 | HMH.PHAAMS2 ---
- Antimicrobial Stewardship Review culture & sensitivity review Stewardship interventions: culture & sensitivity review Comments: URINE CX GROWING GRAM NEGATIVE RODS, ID/SENSITIVITY PENDING. BLOOD CX NO GROWTH AT 24 HRS. TREATING COMPLICATED UTI (PYELONEPHRITIS) EMPIRICALLY WITH CEFEPIME.
[2025-06-26 11:09] LABS: RBC Morphology Normal; Total Cells Counted 100
[2025-06-26 11:12] LABS: Hemoglobin 10.6 g/dL (12.2-16.2)
[2025-06-26] MEDS: ACETAMINOPHEN 325MG TAB 650 MG PO ×2 (11:53→20:08)
[2025-06-26 12:00] VITALS: BP 121/65; PULSE 111; RESP 16; TEMP 37.3; O2SAT 97
--- NOTE | 2025-06-26 14:01 | P.PN_ITS ---
Subjective *Date: 06/26/25 *Time: 14:01 Interval history: Today, patient states she feels slightly better. Continues to have weakness, left flank pain. Fevers improving, afebrile overnight. WBC improved from 24- 22. Continue cefepime pending urine culture speciation and sensitivities. Exam Data for Last 24 hours Vital signs and Labs for Last 24 Hours: Temp Pulse Resp BP Pulse Ox O2 Del Method 98.3 F 86 16 99/59 L 93 L Room Air 06/26/25 04:00 06/26/25 04:00 06/26/25 04:00 06/26/25 04:00 06/26/25 04:00 06/26/25 12:53 Laboratory Results - last 24 hr 06/25/25 08:00: C-Reactive Protein 232.5 H, Procalcitonin 1.05 06/25/25 10:46: Ur C. trach DNA (PCR) Negative, U N.gonorrhoeae DNA PCR Negative, T. vaginalis (PCR) Negative 06/25/25 12:50: Chlamy pneumoniae PCR Not detected, Adenovirus (PCR) Not detected, B. pertussis DNA (PCR) Not detected, Coronavirus OC43 (PCR) Not detected, Coronavirus HKU1 (PCR) Not detected, Coronavirus 229E (PCR) Not detected, SARS-CoV-2 (PCR) Not detected, Coronavirus NL63 (PCR) Not detected, Human Metapneumovir PCR Not detected, Influenza A (H1) PCR Not detected, Influ A (H1N1/09) PCR Not detected, Influenza A (H3) PCR Not detected, Influenza Type A (PCR) Not detected, Influenza Type B (PCR) Not detected, M. pneumoniae (PCR) Not detected, Parainfluenza 1 (PCR) Not detected, Parainfluenza 2 (PCR) Not detected, Parainfluenza 3 (PCR) Not detected, Parainfluenza 4 (PCR) Not detected, RSV (PCR) Not detected, Entero/Rhino (PCR) Not detected 06/26/25 06:15: WBC 22.0 H*, RBC 3.73 L, Hgb 10.6 L D, Hct 33.1 L, MCV 88.7, MCH 27.6, MCHC 31.1 L, RDW 14.0, Plt Count 183, MPV 12.2 H, Neut % (Auto) 81.8 H, Lymph % (Auto) 6.5 L, [place] % (Auto) 10.6 H, Eos % (Auto) 0.2, Baso % (Auto) 0.2, Neut # (Auto) 18.0 H, Lymph # (Auto) 1.4, [place] # (Auto) 2.3 H, Eos # (Auto) 0.0, Baso # (Auto) 0.0, Total Counted 100, Neutrophils % (Manual) 83 H, Lymphocytes % (Manual) 5 L, Monocytes % (Manual) 11 H, Eosinophils % (Manual) 1, Platelet Estimate Normal, RBC Morphology Normal, Sodium 133 L, Potassium 3.6, Chloride 104, Carbon Dioxide 24, Anion Gap 8.6, BUN 7, Creatinine 0.70, Estimated Creat Clear 195, Estimated GFR 106, Est GFR ( Amer) 128, Glucose 95, Calcium 8.1 L, Total Bilirubin 0.6, AST 52 H D, ALT 37, Alkaline Phosphatase 102, Total Protein 5.7 L, Albumin 3.1 L D, Globulin 2.6, Albumin/Globulin Ratio 1.2 I & O for Last 24 hours: Intake & Output 06/23/25 06/24/25 06/25/25 06/26/25 23:59 23:59 23:59 23:59 Intake Total 1460 / 1700 4648.334 / 5148.334 2031.666 / 2031.666 Output Total 0 / 0 1150 / 1150 Balance 1460 / 1700 3498.334 / 3998.334 2031.666 / 2031.666 Weight 89.2 kg 89.103 kg 97.386 kg Microbiology Reports for the Last 24 Hours: Microbiology 06/24/25 12:57 Urine,Clean Catch Urine Culture - Final Escherichia coli 06/24/25 12:57 Throat Group A Streptococcus Screen (SARAH) - Final Negative for Group A Streptococcus. 06/24/25 14:05 Blood Blood Culture - Preliminary NO GROWTH AFTER 24 HOURS 06/24/25 14:11 Blood Blood Culture - Preliminary NO GROWTH AFTER 24 HOURS Constitutional Constitutional: mild distress *Routine HEENT Exam Head: Present normocephalic Eye: Present EOMI and PERRL ENT: Present mucous membranes moist *Routine Neck Exam Neck: Present supple; Absent lymphadenopathy *Routine Respiratory Exam Respiratory: Present CTA bilaterally *Routine Cardiovascular Exam Cardiovascular: Present RRR *Routine Abdominal Exam Abdominal: Present soft, normoactive bowel sounds and tenderness Comments: Left CVA tenderness. *Routine Extremities Exam Extremities: Absent cyanosis, clubbing or edema *Routine Skin Exam Skin: Present warm; Absent rash *Routine Neurological Exam Neurological: Present alert and oriented X3 Assessment and Plan *Assessment and plan (1) Sepsis: Status: Acute Category: Medical Code(s): A41.9 - Sepsis, unspecified organism (2) Pyelonephritis: Status: Acute Category: Medical Code(s): N12 - Tubulo-interstitial nephritis, not specified as acute or chronic Plan Kavita Jean Baptiste is a 20-year-old female with a medical history significant for UTIs presents with progressive left-sided flank pain, and 1 day onset of fevers and nausea. She states she started having back pain starting Friday, especially her left side. Initially she thought she pulled a muscle and used a massage chair which did not make it better. Left flank pain got progressively worse, and over the past day she started having fevers and nausea and left flank pain. Workup in the ED significant for WBC 12.9, fevers up to 100.9, with tachycardia, UA grossly abnormal. Patient was given 1 L LR, ceftriaxone, Tylenol, Toradol. Given these findings, ED provider discussed case with manage said to admit patient for acute left-sided pyelonephritis. #Sepsis, resolved #Acute left-sided pyelonephritis ? Presented with progressive left-sided flank pain, fevers, nausea. UA grossly abnormal. ? Met sepsis criteria with tachycardia, fevers, leukocytosis. ? Today, patient states she feels slightly better. Continues to have weakness, left flank pain. Fevers improving, afebrile overnight. WBC improved from 24- 22. ? Urine culture growing gram-negative rods, follow-up speciation and sensitivities. ? CT abdomen/pelvis on 06/25/2025 consistent with left-sided pyelonephritis and ureteritis without abscess. ? Negative for G/sleep/trichomonas. ? Continue IV cefepime 2 g every 8 hours, had discontinued ceftriaxone. ? Continue LR at 100 mg/h. ? Tylenol, Toradol, morphine for pain control since kidney function stable. Creatinine 0.70, GFR 106. Stable. ? Follow-up morning CBC, CMP. #Anxiety/depression ?Continue home bupropion 75 mg twice daily, fluoxetine 40 mg daily. Full code DVT prophylaxis: Patient is ambulatory
[2025-06-26 16:00] VITALS: BP 128/60; PULSE 80; RESP 16; TEMP 36.8; O2SAT 94
[2025-06-26 20:00] VITALS: BP 107/52; PULSE 102; RESP 16; TEMP 37.6; O2SAT 96
[2025-06-27] VITALS: BP 90/53; PULSE 86; RESP 16; TEMP 36.7; O2SAT 98
[2025-06-27] MEDS: LACTATED RINGERS 1000ML 1,000 ML 100 ML IV (01:18)
[2025-06-27] MEDS: ACETAMINOPHEN 325MG TAB 650 MG PO ×2 (02:22→08:15)
--- NOTE | 2025-06-27 02:25 | PC.NURSE ---
patient stated she vomited resulting in a h/a. tx per OCT. while in the room, patient reported she felt SOA but didn't appear to be in any acute respiratory distress - checked oxygen sat, patient was 95% on RA. voices no other complaints at this time.
--- NOTE | 2025-06-27 03:30 | PC.NURSE ---
RAC IV infiltrated and patient refused a new line, LR on hold and Hospitalist aware
[2025-06-27 04:00] VITALS: BP 123/60; PULSE 98; RESP 16; TEMP 37.3; O2SAT 97; BMI 35.8
[2025-06-27 06:27] LABS: Hematocrit 29.0 % (37.0-47.0); Immature Granulocytes % 0.5 %; Mean Corpuscular HGB Conc 32.1 g/dL (31.8-35.4); Mean Corpuscular Hemoglobin 28.3 pg (27.0-31.2); Mean Corpuscular Volume 88.1 fl (81-99); Nucleated Red Blood Cells % 0 %; Platelet Count 177 K/mm3 (142-424); Red Blood Count 3.29 M/mm3 (4.20-5.40); Red Cell Distribution Width-SD 45.1 fL; White Blood Count 16.9 K/mm3 (4.8-10.8)
[2025-06-27 06:42] LABS: Alanine Aminotransferase 76 U/L (12-78); Albumin Level 2.9 g/dl (3.5-5.0); Albumin/Globulin Ratio 1.1 (1.1-1.8); Alkaline Phosphatase 128 U/L (38-126); Anion Gap 6.3 mEq/L (5-15); Aspartate Amino Transferase 97 U/L (14-36); Bilirubin,Total 0.5 mg/dl (0.2-1.3); Blood Urea Nitrogen 3 mg/dl (7-17); Calcium 8.1 mg/dl (8.4-10.2); Carbon Dioxide 26 mmol/L (22.0-30.0); Chloride 105 mmol/L (98-107); Creatinine Clearance Estimated 223 mL/min (50-200); Creatinine,Serum 0.60 mg/dl (0.52-1.04); Estimated Glomerular Filt Rate 126 ml/min (>60); GFR (African American) 153 ML/MIN (>60); Globulin 2.6 g/dL (1.3-3.2); Glucose 96 mg/dl (74-100); Potassium 3.3 mmoL/L (3.5-5.1); Sodium 134 mmol/L (136-145); Total Protein,Serum 5.5 g/dl (6.3-8.2)
[2025-06-27 07:02] LABS: Hemoglobin 9.5 g/dL (12.2-16.2)
[2025-06-27 08:00] VITALS: BP 152/84; PULSE 93; RESP 17; TEMP 37.2; O2SAT 95
[2025-06-27] MEDS: FLUOXETINE 20MG CAPSULE 40 MG PO (08:15)
--- NOTE | 2025-06-27 08:56 | HMH.PHAAMS2 ---
- Antimicrobial Stewardship Review culture & sensitivity review Stewardship interventions: culture & sensitivity review (ADMITTED WITH SEPSIS/PYLONEPHRITIS, ON ROCEPHIN, WBC DECREASED FROM 24.1K TO 16.9K SINCE ADMISSION.)
--- NOTE | 2025-06-27 09:19 | EXP.DC.SUM ---
General Admission date:: 06/24/25 HPI HPI HPI: Kavita Jean Baptiste is a 20-year-old female with a medical history significant for UTIs presents with progressive left-sided flank pain, and 1 day onset of fevers and nausea. She states she started having back pain starting Friday, especially her left side. Initially she thought she pulled a muscle and used a massage chair which did not make it better. Left flank pain got progressively worse, and over the past day she started having fevers and nausea and left flank pain. Workup in the ED significant for WBC 12.9, fevers up to 100.9, with tachycardia, UA grossly abnormal. Patient was given 1 L LR, ceftriaxone, Tylenol, Toradol. Given these findings, ED provider discussed case with manage said to admit patient for acute left-sided pyelonephritis. Hospital Course Hospital Course Hospital Course: Kavita Jean Baptiste is a 20-year-old female with a medical history significant for UTIs presents with progressive left-sided flank pain, and 1 day onset of fevers and nausea. She states she started having back pain starting Friday, especially her left side. Initially she thought she pulled a muscle and used a massage chair which did not make it better. Left flank pain got progressively worse, and over the past day she started having fevers and nausea and left flank pain. Workup in the ED significant for WBC 12.9, fevers up to 100.9, with tachycardia, UA grossly abnormal. Patient was given 1 L LR, ceftriaxone, Tylenol, Toradol. Given these findings, ED provider discussed case with manage said to admit patient for acute left-sided pyelonephritis. #Sepsis, resolved #Acute left-sided pyelonephritis ? Presented with progressive left-sided flank pain, fevers, nausea. UA grossly abnormal. ? Met sepsis criteria with tachycardia, fevers, leukocytosis. ? CT abdomen/pelvis on 06/25/2025 consistent with left-sided pyelonephritis and ureteritis without abscess. ? Negative for G/sleep/trichomonas. ? Through hospital course patient continued to have fevers and left flank pain that gradually improved with IV cefepime, and then ceftriaxone. ? Urine culture growing E. coli pansensitive including levofloxacin. ? Discharged with levofloxacin 750 mg daily for 6 more days, [place] as needed for pain control, Zofran. #Anxiety/depression ? Patient continue home bupropion 75 mg twice daily, fluoxetine 40 mg daily. Total time spent on discharge: 32 minutes on chart review, counseling, documentation, and direct care with patient. Exam Data for Last 24 hours Vital signs and Labs for Last 24 Hours: Temp Pulse Resp BP Pulse Ox O2 Del Method 99.0 F 93 H 17 152/84 H 95 Room Air 06/27/25 08:00 06/27/25 08:00 06/27/25 08:00 06/27/25 08:00 06/27/25 08:00 06/27/25 09:00 Laboratory Results - last 24 hr 06/26/25 06:15: WBC 22.0 H*, RBC 3.73 L, Hgb 10.6 L D, Hct 33.1 L, MCV 88.7, MCH 27.6, MCHC 31.1 L, RDW 14.0, Plt Count 183, MPV 12.2 H, Neut % (Auto) 81.8 H, Lymph % (Auto) 6.5 L, [place] % (Auto) 10.6 H, Eos % (Auto) 0.2, Baso % (Auto) 0.2, Neut # (Auto) 18.0 H, Lymph # (Auto) 1.4, [place] # (Auto) 2.3 H, Eos # (Auto) 0.0, Baso # (Auto) 0.0, Total Counted 100, Neutrophils % (Manual) 83 H, Lymphocytes % (Manual) 5 L, Monocytes % (Manual) 11 H, Eosinophils % (Manual) 1, Platelet Estimate Normal, RBC Morphology Normal 06/27/25 05:33: WBC 16.9 H, RBC 3.29 L, Hgb 9.5 L D, Hct 29.0 L, MCV 88.1, MCH 28.3, MCHC 32.1, RDW 14.0, Plt Count 177, MPV 12.2 H, Neut % (Auto) 85.1 H, Lymph % (Auto) 6.6 L, [place] % (Auto) 7.5, Eos % (Auto) 0.2, Baso % (Auto) 0.1, Neut # (Auto) 14.4 H, Lymph # (Auto) 1.1, [place] # (Auto) 1.3 H, Eos # (Auto) 0.0, Baso # (Auto) 0.0, Sodium 134 L, Potassium 3.3 L, Chloride 105, Carbon Dioxide 26, Anion Gap 6.3, BUN 3 L D, Creatinine 0.60, Estimated Creat Clear 223, Estimated GFR 126, Est GFR ( Amer) 153, Glucose 96, Calcium 8.1 L, Total Bilirubin 0.5, AST 97 H D, ALT 76 D, Alkaline Phosphatase 128 H, Total Protein 5.5 L, Albumin 2.9 L, Globulin 2.6, Albumin/Globulin Ratio 1.1 I & O for Last 24 hours: Intake & Output 06/24/25 06/25/25 06/26/25 06/27/25 23:59 23:59 23:59 23:59 Intake Total 1460 / 1700 4648.334 / 5148.334 3948.333 / 3948.333 685 / 685 Output Total 0 / 0 1150 / 1150 0 / 0 0 / 0 Balance 1460 / 1700 3498.334 / 3998.334 3948.333 / 3948.333 685 / 685 Weight 89.2 kg 89.103 kg 97.386 kg 95.209 kg Microbiology Reports for the Last 24 Hours: Microbiology 06/24/25 14:05 Blood Blood Culture - Preliminary NO GROWTH AFTER 48 HOURS 06/24/25 14:11 Blood Blood Culture - Preliminary NO GROWTH AFTER 48 HOURS 06/24/25 12:57 Urine,Clean Catch Urine Culture - Final Escherichia coli 06/24/25 12:57 Throat Group A Streptococcus Screen ([facility]) - Final Negative for Group A Streptococcus. Constitutional Constitutional: mild distress *Routine HEENT Exam Head: Present normocephalic Eye: Present EOMI and PERRL ENT: Present mucous membranes moist *Routine Neck Exam Neck: Present supple; Absent lymphadenopathy *Routine Respiratory Exam Respiratory: Present CTA bilaterally *Routine Cardiovascular Exam Cardiovascular: Present RRR *Routine Abdominal Exam Abdominal: Present soft, normoactive bowel sounds and tenderness Comments: Left CVA tenderness. *Routine Extremities Exam Extremities: Absent cyanosis, clubbing or edema *Routine Skin Exam Skin: Present warm; Absent rash *Routine Neurological Exam Neurological: Present alert and oriented X3 Results Data Completed and Pending Labs on day of discharge: Labs from last 24 hours 06/27/25 06/26/25 05:33 06:15 WBC 16.9 H 22.0 H* RBC 3.29 L 3.73 L Hgb 9.5 L D 10.6 L D Hct 29.0 L 33.1 L MCV 88.1 88.7 MCH 28.3 27.6 MCHC 32.1 31.1 L RDW 14.0 14.0 Plt Count 177 183 MPV 12.2 H 12.2 H Neut % (Auto) 85.1 H 81.8 H Lymph % (Auto) 6.6 L 6.5 L [place] % (Auto) 7.5 10.6 H Eos % (Auto) 0.2 0.2 Baso % (Auto) 0.1 0.2 Neut # (Auto) 14.4 H 18.0 H Lymph # (Auto) 1.1 1.4 [place] # (Auto) 1.3 H 2.3 H Eos # (Auto) 0.0 0.0 Baso # (Auto) 0.0 0.0 Total Counted 100 Neutrophils % (Manual) 83 H Lymphocytes % (Manual) 5 L Monocytes % (Manual) 11 H Eosinophils % (Manual) 1 Platelet Estimate Normal RBC Morphology Normal Sodium 134 L Potassium 3.3 L Chloride 105 Carbon Dioxide 26 Anion Gap 6.3 BUN 3 L D Creatinine 0.60 Estimated Creat Clear 223 Estimated GFR 126 Est GFR ( Amer) 153 Glucose 96 Calcium 8.1 L Total Bilirubin 0.5 AST 97 H D ALT 76 D Alkaline Phosphatase 128 H Total Protein 5.5 L Albumin 2.9 L Globulin 2.6 Albumin/Globulin Ratio 1.1 Preliminary micro results at discharge 06/24/25 14:05 Blood Culture - Preliminary Blood NO GROWTH AFTER 48 HOURS 06/24/25 14:11 Blood Culture - Preliminary Blood NO GROWTH AFTER 48 HOURS DS: Diagnosis Discharge Diagnosis (1) Sepsis: Status: Acute Code(s): A41.9 - Sepsis, unspecified organism (2) Pyelonephritis: Status: Acute Code(s): N12 - Tubulo-interstitial nephritis, not specified as acute or chronic Meds Home Medications and Allergies Home Medications ?Medication ?Instructions ?Recorded ?Confirmed ?Type bupropion HCl 75 mg tablet 75 mg PO BID 06/24/25 06/24/25 History fluoxetine 40 mg capsule 40 mg PO DAILY 06/24/25 06/25/25 History hydrocodone 5 mg-acetaminophen 325 1 tab PO Q6H PRN pain #12 tabs 06/27/25 Rx mg tablet levofloxacin 750 mg tablet 750 mg PO DAILY 6 days #6 tabs 06/27/25 Rx ondansetron 4 mg disintegrating 4 mg PO Q8H PRN nausea and 06/27/25 Rx tablet vomiting #10 tabs New Prescriptions to Start Prescriptions: hydrocodone-acetaminophen Kalyan Pugh levofloxacin Kalyan Pugh ondansetron Kalyan Pugh Allergies Allergy/AdvReac Type Severity Reaction Status Date / Time No Known Allergies Allergy Verified 06/24/25 12:55 Discharge Plan Disposition Patient Disposition: Home, Self-Care Condition: Fair Discharge Order Discharge Orders: Discharge Order (Routine); Ordered 06/27/25 Ordered By: Kalyan Pugh Follow up Plan Follow up with: Ángela Knox APRN [Nurse Practitioner, Family Practice] - 07/06/25 3:00 pm Prescriptions/Medication Reconciliation: New levofloxacin 750 mg tablet 750 mg PO DAILY 6 Days Qty: 6 0RF ondansetron 4 mg tablet,disintegrating 4 mg PO Q8H PRN (Reason: nausea and vomiting) Qty: 10 0RF hydrocodone-acetaminophen 5-325 mg tablet 1 tab PO Q6H PRN (Reason: pain) Qty: 12 0RF Continued bupropion HCl 75 mg tablet 75 mg PO BID fluoxetine 40 mg capsule 40 mg PO DAILY Problem Reconciliation Problems Reviewed?: Yes Patient Discharge Instructions Stand Alone Forms: [facility] Work Release Patient Instructions: Urinary Tract Infection, Sepsis, Stop Light Infection Print Language: Ken[place] Providers Primary Care Provider: Provider,Referral Admit Provider: Kalyan Pugh Attending Provider: Kalyan Pugh
== END 2025-06-27 09:53 | disposition home or self-care (01) | DRG 872 ==
LOC: ER 14:00 → 2ND 15:48
PROVIDERS: Admitting Provider Student in an Organized Health Care Education/Training Program; Emergency Provider Student in an Organized Health Care Education/Training Program; Visit Provider Student in an Organized Health Care Education/Training Program
DX: A41.9 Sepsis, unspecified organism (principal); N10 Acute pyelonephritis; N28.89 Other specified disorders of kidney and ureter; B96.20 Unspecified Escherichia coli [E. coli] as the cause of diseases classified elsewhere; F41.9 Anxiety disorder, unspecified; F32.A Depression, unspecified; F17.200 Nicotine dependence, unspecified, uncomplicated
CPT/HCPCS: 0223U; 36415; 74177; 80053; 81001; 81025; 83605; 83690; 84145; 85007; 85025; 86140; 87040; 87086; 87088; 87186; 87430; 87491; 87591; 87636; 87661; 99285; J0692; J0696; J1885; J2270; J2405; J2550; J7120; Q9967

== ENCOUNTER 2025-07-06 10:37 | Outpatient (CLI) | payer BC, OTHER, SELFPAY ==
[2025-07-06 16:54] LABS: Hematocrit 38.5 % (37.0-47.0); Hemoglobin 12.3 g/dL (12.2-16.2); Immature Granulocytes % 0.4 %; Mean Corpuscular HGB Conc 31.9 g/dL (31.8-35.4); Mean Corpuscular Hemoglobin 27.7 pg (27.0-31.2); Mean Corpuscular Volume 86.7 fl (81-99); Nucleated Red Blood Cells % 0 %; Platelet Count 380 K/mm3 (142-424); Red Blood Count 4.44 M/mm3 (4.20-5.40); Red Cell Distribution Width-SD 44.2 fL; White Blood Count 8.3 K/mm3 (4.8-10.8)
[2025-07-06 18:10] LABS: Hepatitis C Ab Qual. W/ RFX NEGATIVE (Negative)
[2025-07-06 18:30] LABS: Chloride 105 mmol/L (98-107)
[2025-07-06 18:31] LABS: Albumin Level 4.2 g/dl (3.5-5.0); Potassium 4.4 mmoL/L (3.5-5.1); Sodium 142 mmol/L (136-145)
[2025-07-06 18:33] LABS: Anion Gap 17.4 mEq/L (5-15); Blood Urea Nitrogen 10 mg/dl (7-17); Carbon Dioxide 24 mmol/L (22.0-30.0); Creatinine,Serum 0.70 mg/dl (0.52-1.04); Estimated Glomerular Filt Rate 106 ml/min (>60); GFR (African American) 128 ML/MIN (>60)
[2025-07-06 18:34] LABS: Alanine Aminotransferase 21 U/L (12-78); Albumin/Globulin Ratio 1.4 (1.1-1.8); Alkaline Phosphatase 74 U/L (38-126); Aspartate Amino Transferase 22 U/L (14-36); Bilirubin,Total 0.5 mg/dl (0.2-1.3); Calcium 8.9 mg/dl (8.4-10.2); Globulin 3.0 g/dL (1.3-3.2); Glucose 90 mg/dl (74-100); Total Protein,Serum 7.2 g/dl (6.3-8.2)
== END 2025-07-06 23:59 | disposition home or self-care (01) ==
LOC: LAB.DROPOF 07-08 10:38
PROVIDERS: Visit Provider Nurse Practitioner Family
DX: N12 Tubulo-interstitial nephritis, not specified as acute or chronic (principal); E87.6 Hypokalemia; Z11.59 Encounter for screening for other viral diseases; Z11.4 Encounter for screening for human immunodeficiency virus [HIV]; Z76.89 Persons encountering health services in other specified circumstances; R74.8 Abnormal levels of other serum enzymes; R53.83 Other fatigue
CPT/HCPCS: 80053; 85025; 86803; 87389